=== PATIENT | male | born 1970 | race Caucasian/White ===

== ENCOUNTER 2017-02-20 18:36 | Emergency (ER) | payer BC ==
[~2017-02-20] VITALS: Ht 177.8 cm; Wt 112.5 kg
[~2017-02-20 18:36] MED LIST: NCDT21 TD
[2017-02-20 18:40] VITALS: TEMP 36.6; Ht 177.8 cm; Wt 112.5 kg
--- NOTE | 2017-02-20 18:59 | EMERGENCY ROOM VISIT NOTE ---
History Report prepared by Nelson: Mery Silva Under the Supervision of: Dr. Papa Kim M.D. First contact with patient: 18:44 Chief Complaint: ALLERGIC REACTION Stated Complaint: ALLERGIC REACTION Nursing Triage Summary: Ate some Skittles and gummie bears and began to feel like bilateral arms were burning "like they were soaked in gasoline". Patient is allergic to strawberries. Patient began to feel like he could not breathe. Patient went to [facility] where he was sent to ED by ambulance. History of Present Illness The patient is a 46 year old male who presents to the Emergency Room with complaints of an episode of an allergic reaction beginning 1 hour ago. The patient states that he was eating skittles and gummy bears tonight and began to feel bilateral arm burning. He reports that his arms felt like they were on fire and states that he also had facial redness and leg redness. He complains of a sudden onset of sore throat, difficulty swallowing, and some shortness of breath. His notes that he had some white welts or hives on the insides of his thighs. The patient reports that he has an allergy to strawberries and last had a reaction in high school that consisted of hives and itchiness. He notes that he has no history of anaphylaxis and has been eating skittles and gummy bears often for years without any reaction before. He is concerned that there may have been real strawberries in the candy. The patient denies any new detergents, nut ingestion, new exposures, fever, chills, congestion, new cough, and itching. He does state that he was sick 3 days ago with diarrhea, shoulder pain, and congestion but has been doing fine since then. He reports that he smokes 1 pack of cigarettes a day and has a chronic cough that has not worsened. He notes that his symptoms have mostly resolved on arrival. Source of History: patient, spouse/significant other Onset: 1 hour ago Position: other (global) Quality: other (allergic reaction) Timing: other (episode) Associated Symptoms: + sorethroat, + SOB, No fevers, No chills Note: Pt complains of bilateral arm burning, face redness, leg redness, white welts, and difficulty swallowing. The patient denies any new detergents, nut ingestion , new exposures, congestion, and itching. Review of Systems See HPI for pertinent positives and negatives. A total of ten systems were reviewed and were otherwise negative. Past Medical & Surgical Medical Problems: (1) Anxiety State Nos (2) Calculus Of Kidney (3) Chest pain (4) Depressive Disorder Nec (5) Tobacco Use Disorder Surgical Problems: (1) No history of previous surgery Family History FH: coronary artery disease FH: hypertension Social History Smoking Status: Current Every Day Smoker Alcohol Use: occasionally Drug Use: none Marital Status: Housing Status: lives with family Occupation Status: employed Current/Historical Medications No Active Prescriptions or Reported Meds Allergies Coded Allergies: Penicillins (Unverified Allergy, Mild, 02/20/17) [place]imsley (Unverified Allergy, Unknown, HIVES, 02/20/17) Physical Exam Vital Signs Date Time Temp Pulse Resp B/P (MAP) Pulse Ox O2 Delivery O2 Flow Rate FiO2 02/20/17 20:13 92 18 138/92 95 Room Air 02/20/17 19:05 97 18 149/102 96 02/20/17 18:40 97 Room Air 02/20/17 18:40 36.6 96 17 135/103 96 Room Air Physical Exam GENERAL: Awake, alert, well-appearing, in no distress HENT: Normocephalic, atraumatic. Oropharynx unremarkable. EYES: Normal conjunctiva. Sclera non-icteric. NECK: Supple. No nuchal rigidity. FROM. No JVD. RESPIRATORY: Clear to auscultation. CARDIAC: Regular rate, normal rhythm. Extremities warm and well perfused. Pulses equal. ABDOMEN: Soft, non-distended. No tenderness to palpation. No rebound or guarding. No masses. RECTAL: Deferred. MUSCULOSKELETAL: Chest examination reveals no tenderness. The back is symmetrical on inspection without obvious abnormality. There is no CVA tenderness to palpation. No joint edema. LOWER EXTREMITIES: Calves are equal size bilaterally and non-tender. No edema. No discoloration. NEURO: Normal sensorium. No sensory or motor deficits noted. SKIN: No rash or jaundice noted. Medical Decision & Procedures Medications Administered Medications (Trade) Dose Ordered Sig/[place] Route Start Time Stop Time Status Last Admin Dose Admin Dexamethasone Sodium Phosphate (Decadron Inj) 10 mg NOW ONCE PO 02/20/17 19:00 02/20/17 19:05 DC 02/20/17 19:04 10 MG Diphenhydramine HCl (Benadryl Cap) 25 mg NOW STAT PO 02/20/17 18:54 02/20/17 18:57 DC 02/20/17 19:04 25 MG ED Course 1843: The patient was evaluated in room C9. A complete history and physical exam was performed. 1853: Benadryl Cap 25mg PO. 1899: Decadron Inj 10mg PO. 1952: I updated and reevaluated the patient. He is feeling much better. 1958: I reevaluated the patient. Discussed results and discharge instructions: He verbalized understanding and agreement. The patient is ready for discharge. Medical Decision I reviewed the patient's past medical history, medications, and the nursing notes as described above. Differential diagnosis includes allergic reaction, unlikely anaphylaxis, less likely viral, possible panic attack. Patient is a 46-year-old gentleman with a past medical history of allergies to strawberries where he gets hives who presents to the emergency department with complaint of hives and shortness of breath and difficulty swallowing shortly after eating skittles and gummy bears which he was under the impression may have had real strawberries he subsequently felt these symptoms and came to emergency department. However upon arrival symptoms had resolved and he appears in no acute distress is afebrile with stable vital signs. On exam he has no oropharyngeal involvement no edema erythema in the posterior pharynx, no trismus, no tongue elevation, no stridor on auscultation of the neck, lungs are clear to auscultation without wheezes. Considering the patient's description of such severe symptoms in the setting of a prior allergy Will treat with Dex and Benadryl for now and observe briefly in the ED. Patient's symptoms still resolved. Discharged with PCP follow-up. Patient agreeable. Medication Reconcilliation Current Medication List: was personally reviewed by me Blood Pressure Screening Patient's blood pressure: Elevated blood pressure Blood pressure disposition: Elevated BP felt to be situational Impression Primary Impression: Allergic reaction Scribe Attestation The scribe's documentation has been prepared under my direction and personally reviewed by me in its entirety. I confirm that the note above accurately reflects all work, treatment, procedures, and medical decision making performed by me. Departure Information Dispostion Home / Self-Care Prescriptions No Active Prescriptions or Reported Meds Referrals No Doctor, Assigned (PCP) Forms HOME CARE DOCUMENTATION FORM, IMPORTANT VISIT INFORMATION Patient Instructions ED Allergic React Food, My Analytics Quotient Additional Instructions Please follow up with your primary care physician in the next 1-3 days. Your were given a steroid and Benadryl for your allergic reaction. Your exam did not show signs of an emergent condition. Return to the emergency department for worsening symptoms as described in the accompanying instructions.
[2017-02-20] MEDS ORDERED: DEXAMETHASONE SOD INJ 10 MG/ML VIAL PO ONE (19:00)
[2017-02-20 20:13] VITALS: BP 138/92; PULSE 92; O2SAT 95
== END 2017-02-20 20:14 | disposition home or self-care (01) ==
LOC: EDBD 18:36 → C.EDC 18:38
DX: T78.40XA Allergy, unspecified, initial encounter (principal); X58.XXXA Exposure to other specified factors, initial encounter; F17.210 Nicotine dependence, cigarettes, uncomplicated; F41.9 Anxiety disorder, unspecified; Z87.442 Personal history of urinary calculi; F32.9 Major depressive disorder, single episode, unspecified; Z82.49 Family history of ischemic heart disease and other diseases of the circulatory system